=== PATIENT | female | born 1975 | race Caucasian/White ===

== ENCOUNTER 2023-01-30 23:26 | Inpatient (IN) | payer OTHER, SELFPAY ==
--- NOTE | ~2023-01-30 | XR_ITS ---
EXAMINATION: XR CHEST CLINICAL INFORMATION: Cough COMPARISON: None available. TECHNIQUE: 2 views of the chest were obtained. FINDINGS: The cardiac and mediastinal contours are normal. The lungs are well inflated. There may be increased central bronchial markings suggestive of asthma or bronchitis. The lungs are otherwise clear without evidence of a lobar pneumonia. No pleural effusion or pneumothorax. Bony structures are normal. XR/XR chest 2V IMPRESSION: Increased central bronchial markings and well-inflated lungs suggestive of asthma or bronchitis. No evidence of a lobar pneumonia.
--- NOTE | ~2023-01-30 | XR_ITS ---
EXAMINATION: XR ANKLE, LEFT CLINICAL INFORMATION: Left ankle pain COMPARISON: None available. TECHNIQUE: Two views of the left ankle. FINDINGS: The bones and soft tissues are normal. No fracture. Alignment is anatomic. Joint spaces are maintained. No joint effusion. XR/XR ankle LT min 3V IMPRESSION: Normal left ankle.
--- NOTE | ~2023-01-30 | XR_ITS ---
EXAMINATION: XR FOOT, LEFT CLINICAL INFORMATION: Foot pain COMPARISON: None available. TECHNIQUE: AP, lateral, and oblique views of the left foot. FINDINGS: The bones and soft tissues are normal. No fracture. Alignment is anatomic. Joint spaces are maintained. XR/XR foot LT min 3V IMPRESSION: Normal left foot.
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
[2023-01-31 08:23] VITALS: BP 126/74; PULSE 79; RESP 16; TEMP 36.2; O2SAT 100
[2023-01-31 08:37] LABS: Alanine Aminotransferase 27 U/L (0-31); Albumin Level 3.8 g/dL (3.5-5.0); Alkaline Phosphatase 58 U/L (39-117); Anion Gap 14 (12-20); Aspartate Amino Transferase 31 U/L (5-31); Bilirubin Total 1.2 mg/dL (0.0-1.0); Blood Urea Nitrogen 9 mg/dL (9-16); Carbon Dioxide 27 mmol/L (22-29); Chloride 104 mmol/L (96-108); Cholesterol 179 mg/dL; Estimated Glomerular Filt Rate > 60; Glucose Fasting 85 mg/dL (60-99); HDL Cholesterol 62 mg/dL; LDL Cholesterol Calculated 97 mg/dl; Potassium 3.7 mmol/L (3.3-5.1); Sodium 141 mmol/L (135-145); Total Protein 6.2 g/dL (6.5-8.0); Triglycerides 102 mg/dL
[2023-01-31] MEDS: hydrOXYzine HCL 25 MG TABLET PO ×2 (08:41→14:45)
[2023-01-31] MEDS: Acetaminophen 325 MG TABLET 650 MG PO ×2 (08:41→14:45)
--- NOTE | 2023-01-31 11:34 | MHC.CLN ---
NUTRITION CONSULT FOR WEIGHT LOSS >20#. VISITED PATIENT IN HER ROOM WITH SITTER. WOULD LIKE ENSURE SUPPLEMENT TID FOR WEIGHT GAIN. SUPPLEMENT PROVIDES ADDITIONAL 1050 KCALS, 60 G PROTEIN. SUBSTANCE ABUSE AND HOMELESSNESS ARE CONTRIBUTORS TO WEIGHT LOSS. REPORTS THAT EATING WELL HERE.
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
[2023-01-31] MEDS: Thiamine HCL 100 MG TABLET PO (14:45)
[2023-01-31 18:00] VITALS: BP 112/68; PULSE 78; RESP 16; TEMP 36.7; O2SAT 98
[2023-02-01 08:10] VITALS: BP 112/54; PULSE 75; RESP 16; TEMP 37; O2SAT 97
[2023-02-01] MEDS: Thiamine HCL 100 MG TABLET PO (08:16)
[2023-02-01] MEDS: Acetaminophen 325 MG TABLET 650 MG PO ×2 (08:16→16:46)
[2023-02-01] MEDS: LORazepam 1 MG TABLET 2 MG PO (08:29)
--- NOTE | 2023-02-01 09:28 | PM.EVENT ---
Event Note Date of Service: 02/01/23 Event Note: Orthopedics was consulted after patient complained of left foot and ankle pain. Orthopedics ordered x-rays which were reviewed and negative for any acute fracture or dislocation. No soft tissue swelling noted on x-rays. No effusion. No orthopedic intervention needed at this time. Ice, NSAIDs, elevation as appropriate. May f/u with orthopedics outpatient if she continues to have discomfort. Time Spent With Patient Time: Total time managing care of this patient today ____ minutes.
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
[2023-02-01] MEDS: Gabapentin 300 MG CAPSULE PO ×3 (15:11→20:34)
[2023-02-01 17:00] VITALS: BP 99/58; PULSE 83; TEMP 36.8; O2SAT 98
[2023-02-02] MEDS: Gabapentin 300 MG CAPSULE PO ×3 (08:14→21:03)
[2023-02-02] MEDS: LORazepam 1 MG TABLET PO ×2 (08:14→19:07)
[2023-02-02] MEDS: Thiamine HCL 100 MG TABLET PO (08:14)
[2023-02-02 08:16] VITALS: BP 104/57; PULSE 90; RESP 16; TEMP 37; O2SAT 95
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
[2023-02-02] MEDS: Acetaminophen 325 MG TABLET 650 MG PO (11:30)
[2023-02-02] MEDS: oxyCODONE HCl Immed Release 5 MG TABLET PO ×2 (12:51→18:44)
[2023-02-02 16:45] VITALS: BP 110/67; PULSE 89; TEMP 37.2; O2SAT 99
--- NOTE | 2023-02-02 17:29 | MHC.RECOVSUP ---
? Reason for consult:Recovery Support o Current location: [facility] o Identified substance use concern: not sure - Support ? Additional information:?Pt refused to meet with call or contact centre coach once on the floor. Pt discloses that she is to tired and could assistant women's rowing coach come back tomorrow. Finance Broker will follow up tomorrow evening.
[2023-02-02] MEDS: traZODone HCL 50 MG TABLET PO (21:03)
[2023-02-03 03:30] VITALS: BP 114/64; PULSE 82; RESP 16; TEMP 36.9; O2SAT 98
--- NOTE | 2023-02-03 03:31 | PC.NURSE ---
AT APPROXIMATELY 0310, PTS ROOMMATE CAME TO NURSES STATION REPORTING THAT PT FELL USING HER WALKER . STAFF WENT TO PTS ROOM AND OBSERVED HER LYING ON THE FLOOR BEHIND THE DOOR. PT REPORTED THAT SHE FELT LIGHT HEADED SHE WAS WALKING TO THE BATHROOM AND FELL. PT STATES THIS HAS HAPPENED BEFORE WHEN IM TOO TIRED . PT REPORTS THAT SHE DID NOT HIT HER HEAD. SHE DENIES ANY PAIN OR INJURIES AT THIS TIME. PT WAS INCONTINENT OF URINE. CLEANED UP AND PUT BACK TO BED. FINAL EXPENSE AGENT MADE AWARE. INCIDENT REPORT COMPLETED.
[2023-02-03 08:06] VITALS: BP 95/53; PULSE 82; RESP 16; TEMP 37.7; O2SAT 99
[2023-02-03] MEDS: Escitalopram Oxalate 10 MG TABLET PO (08:26)
[2023-02-03] MEDS: Gabapentin 300 MG CAPSULE PO (08:26)
[2023-02-03] MEDS: Thiamine HCL 100 MG TABLET PO (08:26)
--- NOTE | 2023-02-03 12:43 | PC.NURSE ---
pt signed a 3day notice on 02/03/23 up on 02/06/23. provider, KAMRON, ALEXANDRA notified via tiger text
[2023-02-03] MEDS: oxyCODONE HCl Immed Release 5 MG TABLET PO (12:56)
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
[2023-02-03 17:45] VITALS: BP 115/56; PULSE 74; TEMP 36.3
[2023-02-03] MEDS: Acetaminophen 325 MG TABLET 1000 MG PO (19:52)
[2023-02-03] MEDS: traZODone HCL 50 MG TABLET PO (19:54)
--- NOTE | 2023-02-03 21:46 | MHC.RECOVSUP ---
? Reason for consult:Recovery Support o Current location:[facility] ? o Identified substance use concern: Not sure? - Support ? Plan: o Follow up tomorrow ? ? Additional information: technology coach followed up on a referral to meet, pt was sleeping. Recovery support team to follow up tomorrow.?
[2023-02-04 08:06] VITALS: BP 117/82; PULSE 115; RESP 16; TEMP 36.8; O2SAT 99
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
[2023-02-04] MEDS: Thiamine HCL 100 MG TABLET PO (08:11)
[2023-02-04] MEDS: Gabapentin 300 MG CAPSULE PO (08:11)
[2023-02-04] MEDS: Escitalopram Oxalate 10 MG TABLET PO (08:11)
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
[2023-02-05 04:32] LABS: ~HepC Num1 12.57 S/CO (0.00-0.79); ~Hepatitis C Antibody Reactive (Nonreactive)
[2023-02-05 04:44] LABS: HIV AB/AG Nonreactive (Nonreactive); HIV Num 1 0.07 S/CO (0.00-0.99)
[2023-02-05 05:14] LABS: HBsAGNum1 0.28 S/CO (0.00-0.99); Hepatitis B Surface Antigen Negative (Negative); ~Hepatitis B Surface Antibody REACTIVE (Nonreactive)
[2023-02-05 05:15] LABS: Hepatitis A Antibody IgG REACTIVE (Nonreactive); ~Hepatitis A Antibody IgG 6.52 S/CO (0.00-0.99)
[2023-02-07 01:28] LABS: TS Negative Control Passed; TS Panel A 6; TS Panel B 2; TS Positive Control Passed; TSpotTB Borderline (Negative)
[2023-02-07 14:58] LABS: HCV RNA PCR Qn 6.87 Log IU/mL (NOT DETECTED)
[2023-02-10 00:54] LABS: FIB-ALT 26 U/L (6-29); FIB-Alpha-2-Macroglobulin 275 mg/dL (106-279); FIB-Apolipoprotein A1 178 mg/dL (101-198); FIB-GGT 32 U/L (3-55); FIB-Haptoglobin 269 mg/dL (43-212); FIB-Total Bilirubin 0.6 mg/dL (0.2-1.2); Liver Fibrosis Score 0.17; Liver Fibrosis Stage F0; Nec Inflam Act Grade A0
[2023-02-12 15:58] LABS: HCV Genotype LiPA 1a
== END 2023-02-04 11:58 | disposition home or self-care (01) | DRG 751 ==
PROVIDERS: Internal Medicine; Psychiatry & Neurology Psychiatry; Admitting Provider Psychiatry & Neurology Psychiatry; Visit Provider Psychiatry & Neurology Psychiatry
DX: F33.1 Major depressive disorder, recurrent, moderate (principal); R45.851 Suicidal ideations; F10.10 Alcohol abuse, uncomplicated; F17.210 Nicotine dependence, cigarettes, uncomplicated; Z22.7 Latent tuberculosis; Z71.6 Tobacco abuse counseling; Z79.899 Other long term (current) drug therapy
CPT/HCPCS: 36415; 71046; 73610; 73630; 80053; 80061; 81596; 86481; 86706; 86708; 86803; 87340; 87389; 87902